=== PATIENT | female | born 1935 | race Caucasian/White ===

== ENCOUNTER 2024-08-19 08:37 | Outpatient (REF) | payer MEDICARE, SELFPAY ==
[2024-08-19 09:01] LABS: Appearance Urine Clear (Clear)
== END 2024-08-19 08:38 | disposition home or self-care (01) ==
LOC: NPINS 08:37
PROVIDERS: PCP Family Medicine; Visit Provider Nurse Practitioner Gerontology
DX: R53.1 Weakness (principal)
CPT/HCPCS: 81001; 87086